=== PATIENT | male | born 1975 | race Hispanic/Latino ===

== ENCOUNTER 2017-01-24 06:48 | Day surgery (SDC) | payer BC ==
[~2017-01-24] VITALS: Ht 172.7 cm; Wt 79.4 kg
[~2017-01-24 06:48] MED LIST: BACTRIM DS1 TAB PO; no home meds
[2017-01-24] MEDS ORDERED: PERCOCET 5/325M1 TAB PO (09:36)
[2017-01-24] MEDS ORDERED: PERCOCET 5/321 COMBO PO (09:37)
[2017-01-24 11:21] VITALS: BP 109/59
== END 2017-01-24 10:17 | disposition home or self-care (01) | DRG 572 ==
LOC: ORM 06:48
PROVIDERS: ATTEND Surgery
PROC: 0JB90ZZ Excision of Buttock Subcutaneous Tissue and Fascia, Open Approach (ICD-10-PCS; principal; 2017-01-24)
DX: L05.01 Pilonidal cyst with abscess (principal)

== ENCOUNTER 2018-10-30 08:40 | Day surgery (SDC) | payer BC ==
[~2018-10-30] VITALS: Ht 172.7 cm; Wt 83.5 kg
[~2018-10-30 08:40] MED LIST changes: +PERCOCET 5/321 COMBO PO; +PERCOCET 5/325M1 TAB PO
[2018-10-30] MEDS ORDERED: BACTRIM DS1 TAB PO (11:00)
[2018-10-30] MEDS ORDERED: PERCOCET 5/325M1 TAB PO (11:00)
[2018-10-30 11:12] VITALS: BP 114/55
== END 2018-10-30 11:20 | disposition home or self-care (01) | DRG 572 ==
LOC: ORM 08:40
PROVIDERS: ATTEND Surgery
PROC: 0JB90ZZ Excision of Buttock Subcutaneous Tissue and Fascia, Open Approach (ICD-10-PCS; principal; 2018-10-30)
DX: L05.01 Pilonidal cyst with abscess (principal)
CPT/HCPCS: C9290

== ENCOUNTER 2022-11-28 06:46 | Day surgery (SDC) | payer BC ==
[~2022-11-28] VITALS: Ht 172.7 cm; Wt 83.5 kg
[2022-11-28 08:19] VITALS: BP 125/89
== END 2022-11-28 08:51 | disposition home or self-care (01) | DRG 951 ==
LOC: ENDO 06:46
PROVIDERS: ATTEND Internal Medicine Gastroenterology
PROC: 0DJD8ZZ Inspection of Lower Intestinal Tract, Via Natural or Artificial Opening Endoscopic (ICD-10-PCS; principal; 2022-11-28)
DX: Z12.11 Encounter for screening for malignant neoplasm of colon (principal)